=== PATIENT | female | born 1970 | race Caucasian/White ===

== ENCOUNTER 2018-08-29 18:55 | Emergency (ER) | payer BC ==
[~2018-08-29] VITALS: Ht 177.8 cm; Wt 70.0 kg
[~2018-08-29 18:55] MED LIST: ACIPHEX20 MG OR; ALLEGRA-D 2424 HOUR PO; BACTRIM DS1 TAB PO; EFFEXOR75 MG OR; FIORICET PO; IMITREX25 MG PO; LORTAB 5 OR; LORTAB 7.5 OR; LYRICA25 MG OR; NAPROSYN375 MG PO; NEURONTIN300 MG OR; PERCOCET1 TA4 PO; PREMARIN1.25 MG PO; TOPAMAX50 MG OR; VICODIN1 TAB OR; ZYRTEC D OR; [UNRECOGNIZED DRUG - OTHER]; [UNRECOGNIZED DRUG - OTHER] PO
[2018-08-29] MEDS ORDERED: NAPROXEN500 MG PO (19:25)
[2018-08-29] MEDS ORDERED: BACLOFEN20 MG PO (19:31)
[2018-08-29] MEDS ORDERED: DICLOFENAC SODI75 M1 PO (19:31)
[2018-08-29] MEDS ORDERED: VENLAFAXINE H37.5 M1 PO (19:32)
[2018-08-29] MEDS ORDERED: ESTRADIOL0.5 MG PO (19:32)
[2018-08-29] MEDS ORDERED: TOPAMAX50 MG PO (19:33)
[2018-08-29 19:40] VITALS: BP 155/68
== END 2018-08-29 19:40 | disposition home or self-care (01) | DRG 563 ==
LOC: ED 18:55
DX: S93.401A Sprain of unspecified ligament of right ankle, initial encounter (principal); X50.0XXA Overexertion from strenuous movement or load, initial encounter; Y93.69 Activity, other involving other sports and athletics played as a team or group; Y92.838 Other recreation area as the place of occurrence of the external cause

== ENCOUNTER 2021-06-10 12:05 | Emergency (ER) | payer BC ==
[~2021-06-10] VITALS: Ht 177.8 cm; Wt 84.6 kg
[2021-06-10] VITALS (23 sets, daily range): BP systolic 78–131; BP diastolic 46–88
[~2021-06-10 12:05] MED LIST changes: +BACLOFEN20 MG PO; +DICLOFENAC SODI75 M1 PO; +ESTRADIOL0.5 MG PO; +NAPROXEN500 MG PO; +TOPAMAX50 MG PO; +VENLAFAXINE H37.5 M1 PO
[2021-06-10 12:28] LABS: HEMATOCRIT 39.5 % (37.0-47.0); HEMOGLOBIN 12.9 g/dl (12.0-16.0); IMMATURE GRANULOCYTES 0.2 % (0.0-5.0); MEAN CELL VOLUME 92.5 fL CALC (80.0-100.0); MEAN CORPUSCULAR HGB 30.2 pG CALC (26.0-32.0); MEAN CORPUSCULAR HGB CONC 32.7 g/dL CAL (32.0-36.0); NEUT# 3.73 thou/uL (2.00-7.15); RED BLOOD COUNT 4.27 mill/uL (4.20-5.60); RED CELL DISTRI WIDTH 13.2 % (11.5-15.5)
[2021-06-10 12:52] LABS: ALBUMIN 4.5 g/dL (3.2-5.0); ALKALINE PHOSPHATASE 82 u/l (38-126); ANION GAP 12 (6-22 (CALC)); BILIRUBIN, TOTAL 0.3 mg/dL (0.0-1.4); BUN 16 mg/dL (7-17); BUN/CREATININE RATIO 20 (12-20 (CALC)); CARBON DIOXIDE 19 mmol/l (22-30); CHLORIDE 109 mmol/l (95-108); CREATININE 0.8 mg/dL (0.5-1.0); GFR > 60 ML/MIN (>=60 (CALC)); GFR FOR AFR.AMER. > 60 ML/MIN (>=60 (CALC)); LIPASE 61 u/l (23-300); POTASSIUM 3.8 mmol/l (3.5-5.1); SGOT/AST 31 u/l (14-36); SODIUM 137 mmol/l (137-146); TOTAL PROTEIN 7.6 g/dL (6.3-8.2)
[2021-06-10 14:17] LABS: URINE BILIRUBIN - DIPSTICK NEGATIVE (NEGATIVE); URINE BLOOD DIPSTICK TRACE-INTACT (NEGATIVE); URINE COLOR YELLOW; URINE GLUCOSE - DIPSTICK NEGATIVE (NEGATIVE); URINE KETONE NEGATIVE (NEGATIVE); URINE LEUK ESTERASE NEGATIVE (NEGATIVE); URINE PROTEIN - DIPSTICK NEGATIVE (NEG-TRACE); URINE UROBILINOGEN - DIPSTICK 0.2 E.U./dL (0.2)
[2021-06-10 14:20] LABS: URINE NITRITE - DIPSTICK NEGATIVE (Negative)
[2021-06-10] MEDS ORDERED: TRAMADOL HCL50 MG PO (18:48)
== END 2021-06-10 19:04 | disposition home or self-care (01) | DRG 392 ==
LOC: ED 12:05
PROVIDERS: Nurse Practitioner
DX: R10.32 Left lower quadrant pain (principal); N28.89 Other specified disorders of kidney and ureter; K58.1 Irritable bowel syndrome with constipation